=== PATIENT | male | born 1970 | race Caucasian/White ===

== ENCOUNTER 2018-04-13 19:37 | Inpatient (IN) | payer OTHER ==
[2018-04-13] VITALS (7 sets, daily range): BP systolic 139–159; BP diastolic 58–86
[~2018-04-13] VITALS: Ht 177.8 cm; Wt 108.9 kg
[2018-04-13] MEDS ORDERED: Propofol 200mg/20ml IV ONE (19:59)
[2018-04-13] MEDS ORDERED: Lidocaine 1% MPF 10mg/ml 5ml ONE (19:59)
[2018-04-13] MEDS ORDERED: Neostigmine 1mg/ml 10ml Inj ONE (20:00)
[2018-04-13] MEDS ORDERED: Glycopyrrolate 0.2mg/ml 1ml Vial ONE (20:00)
[2018-04-13] MEDS ORDERED: LR 1000ml ONE (20:00)
[2018-04-13] MEDS ORDERED: Sterile Water Irrig 1000ml IRRIG ONE (20:00)
[2018-04-13] MEDS ORDERED: NS Irrig 1000ml ONE (20:00)
[2018-04-13] MEDS ORDERED: Morphine Sulfate 4mg/ml Inj ONE (20:03)
[2018-04-13] MEDS ORDERED: Zemuron 50mg/5ml Inj IV ONE (20:10)
[2018-04-13] MEDS ORDERED: Midazolam 2mg/2ml Inj ONE ×2 (20:14→20:59)
[2018-04-13] MEDS ORDERED: fentaNYL 100 mcg/2 mL IV ONE ×3 (20:14→22:16)
[2018-04-13] MEDS ORDERED: Bacitracin 50000 Units Vial ONE (20:15)
[2018-04-13] MEDS ORDERED: Morphine Sulfate 4mg/ml Inj IVP ONE (20:15)
[2018-04-13] MEDS ORDERED: Vancomycin 1gm inj IVPB ONE (20:23)
--- NOTE | 2018-04-13 20:33 | Pre-Procedure Note/Attestation ---
Pre-Procedure Note/Attestation Complete Prior to Procedure Planned Procedure: not applicable Procedure Narrative: Lumbar wound irrigation and debridement Indications for Procedure Pre-Operative Diagnosis: Wound allergic reaction dermatitits versus infection Attestation I attest that I discussed the nature of the procedure; its benefits; risks and complications; and alternatives (and the risks and benefits of such alternatives ), prior to the procedure, with the patient (or the patient's legal franchise sales representative). I attest that, if there was a reasonable possibility of needing a blood transfusion, the patient (or the patient's legal franchise sales representative) was given the [facility] standardized written summary, pursuant to the [place] Blood Safety Act ([place] Health and Safety Code # 1645, as amended). I attest that I re-evaluated the patient just prior to the surgery and that there has been no change in the patient's H&P, except as documented below: Efren Leos MD Apr 13, 2018 20:33
--- NOTE | 2018-04-13 20:34 | Brief Operative Note ---
Immediate Post Operative Note Operative Note Chief Complaint: Wound drainage and pain Pre-op Diagnosis: Wound allergic reaction dermatitits versus infection Procedure: Lumbar wound irrigation and debridement Post-op Diagnosis: same as pre-op Findings: consistent w/pre-op dx studies Surgeon: Dafne Anesthesiologist: Anesthesia: general Specimen: yes - cultures aer and anaerobic Complications: none Condition: stable Fluids: IVF Estimated Blood Loss: minimal Drains: none Implant(s) used?: No Efren Leos MD Apr 13, 2018 20:34
[2018-04-13] MEDS ORDERED: Morphine Sulfate 2mg/ml Inj IV PRN (20:45)
[2018-04-13] MEDS ORDERED: Morphine Sulfate 4mg/ml Inj IV PRN (20:45)
[2018-04-13] MEDS ORDERED: Norco 5mg/325mg tab ORAL PRN (20:45)
[2018-04-13] MEDS ORDERED: Chloraseptic Spray 20mL Bottle ORAL PRN (20:45)
[2018-04-13] MEDS ORDERED: Metoclopramide 10mg/2ml Inj IVP PRN (20:45)
[2018-04-13] MEDS ORDERED: HYDROcodone/Acetamin 7.5/325 tab ORAL PRN (20:45)
[2018-04-13] MEDS ORDERED: Naloxone 0.4mg/ml Inj IVP PRN (20:45)
[2018-04-13] MEDS ORDERED: Dexamethasone 4mg/ml vial ONE (21:24)
--- NOTE | 2018-04-13 21:49 | Anethesia Preoperative Eval ---
Anesthesia Pre-op PMH/ROS General Date of Evaluation: Apr 13, 2018 Time of Evaluation: 20:30 Anesthesiologist: ASA Score: ASA 2 Mallampati Score Class I : Soft palate, uvula, fauces, pillars visible Class II: Soft palate, uvula, fauces visible Class III: Soft palate, base of uvula visible Class IV: Only hard plate visible Mallampati Classification: Class II Surgeon: valarie Diagnosis: post op lumbar infection Surgical Procedure: i and d lumbar wound Anesthesia History: none Family History: no anesthesia problems Allergies: Coded Allergies: AZITHROMYCIN (Verified Allergy, Unknown, 03/25/09) ERYTHROMYCIN BASE (Verified Allergy, Unknown, 04/13/18) Medications: see eMAR Past Medical History Cardiovascular: Reports: HTN; Denies: CAD, MD, valve dz, arrhythmia, other Pulmonary: Denies: asthma, COPD, KRISTIAN, other Gastrointestinal/Genitourinary: Denies: GERD, CRI, ESRD, other Neurologic/Psychiatric: Denies: dementia, CVA, depression/anxiety, TIA, other Endocrine: Denies: DM, hypothyroidism, steroids, other HEENT: Denies: cataract (L), cataract (R), glaucoma, [place] (L), [place] (R), other Hematology/Immune: Denies: anemia, DVT, bleeding disorder, other Musculoskeletal/Integumentary: Denies: OA, RA, DJD, DDD, edema, other PSxH Narrative: back surgeries Anesthesia Pre-op Phys. Exam Physician Exam Last Vital Signs Date Time Temp Pulse Resp B/P (MAP) Pulse Ox O2 Delivery O2 Flow Rate FiO2 04/13/18 20:15 98.5 04/13/18 19:38 80 16 159/86 92 Constitutional: NAD Cardiovascular: RRR Respiratory: CTA Gastrointestinal: S/NT/ND Airway Exam Mallampati Score: Class II MO: full ROM: full Teeth: intact Dentures: no upper, no lower Anesthesia Pre-op A/P Risk Assessment & Plan Assessment: asa 2 Plan: ETGA Pre-Antibiotics Drug: vancomycin 1 josiah Given Within 1 Hr of Incision: Yes Time Given: 22:00 Arline Shabazz M.D. Apr 13, 2018 21:49
--- NOTE | 2018-04-13 21:53 | Immediate Post-Op Evaluation ---
Immediate Post-Op Evalulation Immediate Post-Op Evalulation Procedure: lumbar wound i and d Date of Evaluation: Apr 13, 2018 Time of Evaluation: 22:44 IV Fluids: NS 950ml Blood Products: 0 Estimated Blood Loss: 20ml Urinary Output: 0 Blood Pressure Systolic: 140 Blood Pressure Diastolic: 58 Pulse Rate: 94 Respiratory Rate: 17 O2 Sat by Pulse Oximetry: 97 Temperature (Fahrenheit): 97.9 Pain Score (1-10): 5 Nausea: No Vomiting: No Complications none Patient Status: awake, patent, none Hydration Status: adequate Drug: vancomycin 1 gram Given Within 1 Hr of Incision: Yes Time Given: 22:00 Arline Shabazz M.D. Apr 13, 2018 21:53
[2018-04-13] MEDS ORDERED: fentaNYL 100 mcg/2 mL IV PRN (22:00)
[2018-04-13] MEDS ORDERED: DiphenhydrAMINE 50mg/ml Inj IVP PRN (22:00)
[2018-04-13] MEDS ORDERED: Hydromorphone 0.5mg/0.5ml inj IVP PRN (22:00)
[2018-04-13] MEDS ORDERED: Labetalol 5mg/ml 20ml vial IV PRN (22:00)
[2018-04-13] MEDS ORDERED: Midazolam 2mg/2ml Inj IVP PRN (22:00)
[2018-04-13] MEDS ORDERED: Ketorolac 30mg Inj ONE (22:15)
[2018-04-14] VITALS: BP 133/71
[2018-04-14] MEDS ORDERED: LISINOPRIL-HCT1 EAC1 ORAL (00:11)
[2018-04-14] MEDS: NS w/KCl 20mEq 1,000 ML IV SCH ×3 (00:38→12:09)
[2018-04-14] MEDS: Dexamethasone 4mg/ml vial IVP SCH ×4 (00:53→17:31)
[2018-04-14] MEDS: Morphine Sulfate 4mg/ml Inj IV PRN ×4 (00:53→10:44)
[2018-04-14] MEDS: Milk of Magnesia 30ml Ud ORAL PRN ×3 (03:56→17:31)
[2018-04-14 04:00] VITALS: BP 113/59
--- NOTE | 2018-04-14 04:30 | Operative Note - Dictated ---
DATE OF OPERATION: 04/13/2018 SURGEON: Efren Leos M.D. PREOPERATIVE DIAGNOSIS: Wound drainage versus allergic reaction. POSTOPERATIVE DIAGNOSIS: Allergic reaction. PROCEDURES PERFORMED: 1. Lumbar wound irrigation, debridements with vancomycin, and 8 liters of saline. 2. Dissection through altered and scarred anatomy. 3. Intraoperative microscope. COMPLICATIONS: None. ANESTHESIOLOGIST: Arline Shabazz M.D. ESTIMATED BLOOD LOSS: Less than 50 mL. INDICATIONS FOR SURGERY: The patient is a 47-year-old male, who has a history of a recent lumbar decompression and laminectomy, who presented with recent onset headaches, wound drainage, and a very aggressive superficial skin reaction following surgery. Despite antibiotics, his pain was progressing and he developed fevers to 101 degrees. He was seen at an outside hospital where there was a concern for possible wound infection and/or development of meningitis. He was transferred to [facility] for definitive management. The decision was made based on his symptoms, headache, pain with neck flexion, elevated temperatures, and wound drainage to perform an urgent lumbar wound irrigation and debridement. I had a long discussion with the patient regarding the risks and benefits of the surgery. Discussion of the risks and benefits included, but not limited to infection, bleeding, need for revision surgery, scarring, paralysis, development of epidural abscesses or hematoma. He understood these and elected to proceed accordingly. INTRAOPERATIVE FINDINGS: Erythema on the skin with some ruptured bullae and blisters. No superficial or subcutaneous drainage or pus. No deep or sublaminar drainage of pus. No cerebrospinal fluid disease noted. DESCRIPTION OF PROCEDURE: The patient was taken to the operating room and a surgical time-out was called, which corroborating the intended procedure. He was intubated and given preoperative Decadron. The wound was prepped and draped in usual standard manner with Betadine gel. Old incision was reused and incised with a 10-blade scalpel. All sutures were removed. There was no drainage pus or purulent fluid. There was no abnormal tissue and after dissection through the fascial suture, we found regular serosanguineous fluid. This was also cultured with two sets of aerobic and anaerobic cultures. Afterwards, the entire wound and soft tissues were debrided with a combination of Leksell rongeurs and curettage, and the wound was copiously irrigated with antibiotic-impregnated saline 8 liters with vancomycin powder. After irrigation, we next turned our attention at closure. I should note the wound was difficult to approach due to dissection through altered and scarred anatomy. Closure consisted of PDS suture in interrupted fashion and a superficial PDS 1 sutures, which were closed with red belem catheter to prevent skin breakdown followed by bhaskar for intervening level. Dressings consisted of an ABD binder and 4 x 4 gauze. Efren Leos M.D. DR: ELBA JOB#: [id number] CC: [place]
[2018-04-14 08:00] VITALS: BP 128/73
[2018-04-14] MEDS: Docusate 100mg cap ORAL SCH ×2 (09:04→17:31)
[2018-04-14] MEDS: HYDROcodone/Acetamin 7.5/325 tab ORAL PRN ×2 (09:05→21:24)
--- NOTE | 2018-04-14 09:30 | Pre-op HX & Phy Repo 2 SIG ---
DATE OF ADMISSION: 04/13/2018 NOTE: "POOR AUDIO QUALITY" HISTORY OF PRESENT ILLNESS: The patient is a 47-year-old male with history of recent lumbar decompression performed at [facility], who presents with history over the past four days of worsening headaches and with neck flexion and wound drainage. He was admitted yesterday to [place] [facility] where he was found to have elevated sedimentation rate and CRP, and was given antibiotics. He then was treated by a physician press assistant and a medical ER physician who were concerned for development of meningitis versus wound infection, which needed to be irrigated and debrided. As such, he was transferred to my care at [facility] here. PAST MEDICAL HISTORY: Intractable back pain, bilateral lower extremity radiculopathy, prior cervical pain, and underwent surgery. PAST SURGICAL HISTORY: Prior lumbar fusion by Dr. Kevon Clifton, last week underwent lumbar laminectomy and decompression. SOCIAL HISTORY: The patient is . His is in attendance today. 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 Denies alcohol and tobacco use. PHYSICAL EXAMINATION: SKIN: The patient has a wound midline on the lumbar spine, which appears healed. There is a large red area along his lumbar spine into distribution of his prior Steri-Strips and also a rectangular red area in distribution of the prior Tegaderm which he had in place there when previously blisters on the lumbar wound has left in tape which has erythema, excoriated, and roughened and thickened skin area. NEUROLOGIC: Motor of upper extremities is intact throughout the biceps, triceps, wrist extensors and flexors, finger extensors graded 5/5 in bilateral upper extremities. Motor is intact in bilateral lower extremities at [facility] tibialis anterior, gastrocsoleus, peroneal musculature rated 5/5. The the patient was able to move comfortably supine to seated to standing position. The patient was able to get on off board in a plank position followed by the . The patient to bilateral upper extremities throughout the C5, C6, C7, C8 distribution. The patient bilateral lower extremities throughout the L2, L3, L4, L5, and S1 distribution. IMPRESSION AND PLAN: This is a 47-year-old male with prior lumbar surgery, who now presents with a wound infection versus epidural abscess versus allergic reaction. PLAN: We had a long discussion with the patient and his family. The only definitive way to determine whether this is a wound infection versus allergic reaction versus an ongoing epidural abscess with resolving meningitis is to perform an urgent decompression, irrigation, debridement, and benites-cultures. He understands these and has elected to proceed with procedure as described. Efren Leos M.D. DR: Leia JOB#: [id number] CC:
[2018-04-14] MEDS ORDERED: Vancomycin 1 GM in D5W 275 ML IVPB SCH (10:00)
[2018-04-14] MEDS ORDERED: Morphine Sulfate 4mg/ml Inj IV PRN (10:45)
--- NOTE | 2018-04-14 10:49 | History and Physical ---
History of Present Illness General Date patient seen: Apr 14, 2018 Reason for Hospitalization: General Complaint Present Illness HPI 47 year old male with recent spine surgery last week at [facility], started increasing redness around surgical wound gradually. He was taken to OR last night for irrigation of the wound. Post-operatively pt is admitted for post op care. Allergies: Coded Allergies: AZITHROMYCIN (Verified Allergy, Unknown, 03/25/09) ERYTHROMYCIN BASE (Verified Allergy, Unknown, 04/13/18) Medication History Scheduled Lisinopril/Hydrochlorothiazide 20-12.5 Mg Tab (Lisinopril-Hctz 20-12.5 Mg Tab), 2 TAB ORAL DAILY, (Reported) Patient History Healthcare decision maker Resuscitation status Full Code Advanced Directive on File Past Medical/Surgical History Past Medical/Surgical History: (1) History of lumbosacral spine surgery Review of Systems All Other Systems: negative except mentioned in HPI Physical Exam General Appearance: WD/WN Lines, tubes and drains: peripheral HEENT: normocephalic, anicteric Neck: non-tender, normal alignment Respiratory/Chest: chest wall non-tender, lungs clear Breasts: no masses Cardiovascular/Chest: normal peripheral pulses Abdomen: normal bowel sounds, soft Genitourinary/Rectal: normal genital exam Last 24 Hour Vital Signs Date Time Temp Pulse Resp B/P (MAP) Pulse Ox O2 Delivery O2 Flow Rate FiO2 04/14/18 08:49 Room Air 04/14/18 08:00 97.9 81 18 128/73 (91) 97 97.9 04/14/18 04:00 97.3 60 18 113/59 (77) 94 97.3 04/14/18 01:33 Nasal Cannula 3.0 04/14/18 00:00 97.5 74 19 133/71 (91) 96 97.5 04/13/18 23:25 71 17 143/82 95 Nasal Cannula 3 04/13/18 23:15 76 17 143/82 96 Nasal Cannula 3 04/13/18 23:04 208.2 94 17 97 04/13/18 23:00 80 17 139/84 97 Nasal Cannula 3 04/13/18 22:54 74 17 145/80 97 Simple Mask 8 04/13/18 22:49 89 17 142/73 97 Simple Mask 8 04/13/18 22:44 97.9 94 17 140/58 97 Simple Mask 8 97.9 04/13/18 20:40 98.5 80 16 159/86 92 209.3 04/13/18 20:15 98.5 04/13/18 20:00 98.4 80 16 159/86 92 98.4 04/13/18 19:38 98.5 80 16 159/86 92 98.4 Intake and Output 04/13/18 04/14/18 19:00 07:00 Intake Total 1100 ml Balance 1100 ml Intake Oral 0 ml IV Total 1100 ml Height (Feet): 5 Height (Inches): 10.00 Weight (Pounds): 240 Medications Current Medications Medications (Trade) Dose Ordered Sig/Pritesh Route PRN Reason Start Time Stop Time Status Last Admin Dose Admin Acetaminophen (Tylenol) 650 mg Q4H PRN ORAL headache or temp>101 04/13/18 20:45 05/13/18 20:44 Acetaminophen/ Hydrocodone Bitart ([place] 5/325) 1 tab Q3H PRN ORAL pain score 1-3 04/13/18 20:45 04/20/18 20:44 Acetaminophen/ Hydrocodone Bitart ([place] 7.5/325) 1 tab Q3H PRN ORAL pain score 4-6 04/13/18 20:45 04/20/18 20:44 Acetaminophen/ Hydrocodone Bitart ([place] 7.5/325) 2 tab Q3H PRN ORAL pain scale 7-10 04/13/18 20:45 04/20/18 20:44 04/14/18 09:05 Carisoprodol (Soma) 350 mg TIDPRN PRN ORAL SPASM 04/13/18 20:45 05/13/18 20:44 Cetylpyridinium Chloride (Cepacol) 1 lozg EVERY 2 HOURS PRN DAX To Patient Comfort 04/13/18 20:45 05/13/18 20:44 Dexamethasone Sodium Phosphate (Decadron 4mg/ml vial) 4 mg Q6HR IVP 04/14/18 00:00 04/14/18 18:01 04/14/18 05:23 Docusate Sodium (Colace) 100 mg TWICE A DAY ORAL 04/14/18 09:00 05/14/18 08:59 04/14/18 09:04 Magnesium Hydroxide (Mom) 30 ml QIDPRN PRN ORAL Constipation 04/13/18 20:45 8/10/18 20:44 04/14/18 09:04 Metoclopramide HCl (Reglan) 10 mg Q6H PRN IVP Nausea & Vomiting 04/13/18 20:45 05/13/18 20:44 Morphine Sulfate (Morphine Sulfate) 2 mg Q4H PRN IV Mild Pain (Pain Scale 1-3) 04/13/18 20:45 04/20/18 20:44 Morphine Sulfate (Morphine Sulfate) 4 mg Q3H PRN IV Severe Pain (Pain Scale 7-10) 04/13/18 20:45 04/20/18 20:44 04/14/18 07:40 Morphine Sulfate (Morphine Sulfate) 4 mg Q4H PRN IV Moderate Pain (Pain Scale 4-6) 04/13/18 20:45 04/20/18 20:44 Naloxone HCl (Narcan) 0.1 mg PRN PRN IVP RR<12/min, pt unarousable 04/13/18 20:45 05/13/18 20:44 Ondansetron HCl (Zofran) 4 mg Q6H PRN IVP Nausea & Vomiting 04/13/18 20:45 05/13/18 20:44 Phenol/Menthol (Chloraseptic) 1 spray Q3H PRN ORAL To Patient Comfort 04/13/18 20:45 05/13/18 20:44 Sodium Chloride 1,000 ml @ 100 mls/hr Q10H IV 04/13/18 20:34 05/13/18 20:33 04/14/18 05:24 Temazepam (Restoril) 15 mg HSPRN PRN ORAL Insomnia 04/13/18 20:45 04/20/18 20:44 Vancomycin HCl 1 gm/Dextrose 275 ml @ 183.3 mls/ hr Q12H IVPB 04/14/18 10:00 04/14/18 23:31 Assessment/Plan Problem List: (1) Wound infection ICD Codes: T14.8XXA - Other injury of unspecified body region, initial encounter; L08.9 - Local infection of the skin and subcutaneous tissue, unspecified SNOMED: 71597933 (2) Allergic reaction ICD Codes: T78.40XA - Allergy, unspecified, initial encounter SNOMED: 292869016 (3) History of lumbosacral spine surgery ICD Codes: Z98.890 - Other specified postprocedural states SNOMED: 136334415 Assessment/Plan wound care iv abx check cultures check cbc, bmp today dvt prophylaxis adjust pain meds. Stephany Sadler MD Apr 14, 2018 10:48
[2018-04-14] MEDS ORDERED: Morphine Sulfate 10mg/ml Inj IV PRN (11:45)
[2018-04-14 11:58] LABS: HEMATOCRIT 32.9 % (42.0-52.0); HEMOGLOBIN 11.6 G/DL (14.2-18.0); MEAN CORPUSCULAR VOLUME 90 FL (80-99); PLATELET COUNT 268 K/UL (150-450); RED BLOOD COUNT 3.67 M/UL (4.70-6.10); RED CELL DISTRIBUTION WIDTH 9.9 % (11.6-14.8)
[2018-04-14 12:00] VITALS: BP 125/70
[2018-04-14 12:18] LABS: ALANINE AMINOTRANSFERASE 29 U/L (12-78); ALBUMIN 2.8 G/DL (3.4-5.0); ALBUMIN/GLOBULIN RATIO 0.8 (1.0-2.7); ALKALINE PHOSPHATASE 52 U/L (46-116); ANION GAP 5 mmol/L (5-15); ASPARTATE AMINO TRANSFERASE 19 U/L (15-37); BILIRUBIN,TOTAL 0.4 MG/DL (0.2-1.0); BLOOD UREA NITROGEN 25 mg/dL (7-18); CALCIUM 8.4 MG/DL (8.5-10.1); CARBON DIOXIDE 29 MMOL/L (21-32); CHLORIDE 103 MMOL/L (98-107); POTASSIUM 4.3 MMOL/L (3.5-5.1); SODIUM 137 MMOL/L (136-145)
--- NOTE | 2018-04-14 13:35 | 48 Hour Post Anesthesia Eval ---
Post Anesthesia Evaluation Procedure: lumbar wound i and d Date of Evaluation: Apr 14, 2018 Time of Evaluation: 13:33 Blood Pressure Systolic: 124 0: 72 Pulse Rate: 68 Respiratory Rate: 20 Temperature (Fahrenheit): 97.6 O2 Sat by Pulse Oximetry: 98 Airway: patent Nausea: No Vomiting: No Pain Intensity: 2 Hydration Status: adequate Cardiopulmonary Status: stable Follow-up Care/Observations: n/a Post-Anesthesia Complications: none Follow-up care needed: N/A Mihir Goetz MD Apr 14, 2018 13:35
--- NOTE | 2018-04-14 13:54 | Emergency Room Report ---
History of Present Illness General Chief Complaint: General Complaint Source: Patient Present Illness HPI 47-year-old male presents ED for evaluation. Patient referred here by Dr. Leos; patient was at another emergency room today with drainage and redness to his lower back. Has had multiple surgeries on his back previously. Most recent surgery on his back on Wednesday at [facility]. Was discharged on Wednesday. Patient noticed redness and pain to the lower back on Wednesday. Also noted discharge. Pain is sharp, 8 out of 10, nonradiating. Denies fevers or chills. Was prescribed antibiotics by the surgeon but states symptoms did not resolve. Denies any bowel or bladder incontinence. Denies any leg or motor weakness. No other aggravating or relieving factors. Denies any other associated symptoms Allergies: Coded Allergies: AZITHROMYCIN (Verified Allergy, Unknown, 03/25/09) ERYTHROMYCIN BASE (Verified Allergy, Unknown, 04/13/18) Patient History Past Medical History: HTN Past Surgical History: none Pertinent Family History: none Social History: Denies: smoking, alcohol use, drug use Immunizations: UTD Reviewed Nursing Documentation: PMH: Agreed; PSxH: Agreed Nursing Documentation-PMH Past Medical History: No History, Except For Hx Hypertension: Yes Review of Systems All Other Systems: negative except mentioned in HPI Physical Exam Vital Signs Date Time Temp Pulse Resp B/P (MAP) Pulse Ox O2 Delivery O2 Flow Rate FiO2 04/13/18 19:38 98.5 80 16 159/86 92 98.4 04/13/18 22:44 Simple Mask 8 Sp02 EP Interpretation: reviewed, normal General Appearance: no apparent distress, alert, GCS 15, non-toxic Head: normocephalic, atraumatic Eyes: bilateral eye normal inspection, bilateral eye PERRL ENT: hearing grossly normal, normal pharynx, no angioedema, normal voice Neck: full range of motion, supple/symm/no masses Respiratory: chest non-tender, lungs clear, normal breath sounds, speaking full sentences Cardiovascular #1: regular rate, rhythm, no edema Cardiovascular #2: 2+ carotid (R), 2+ carotid (L), 2+ radial (R), 2+ radial (L) , 2+ dorsalis pedis (R), 2+ dorsalis pedis (L) Gastrointestinal: normal bowel sounds, non tender, soft, non-distended, no guarding, no rebound Rectal: deferred Genitourinary: normal inspection, vertebral tenderness Musculoskeletal: back normal, gait/station normal, normal range of motion, non- tender Neurologic: alert, oriented x3, responsive, motor strength/tone normal, sensory intact, speech normal Psychiatric: judgement/insight normal, memory normal, mood/affect normal, no suicidal/homicidal ideation Reflexes: 3+ bicep (R), 3+ bicep (L), 3+ tricep (R), 3+ tricep (L), 3+ knee (R) , 3+ knee (L) Skin: normal color, no rash, warm/dry, well hydrated, other - surgical site to L spine shows surrounding erythema/induration. discharge noted at surgical site Lymphatic: no adenopathy Medical Decision Making Diagnostic Impression: Primary Impression: Wound infection Additional Impression: History of lumbosacral spine surgery ER Course Hospital Course 47 yo M presents with redness/pain to lower back. s/p back surgery Differential diagnoses include: surgical site infection, deep abscess, postoperative pain Clinical course Patient placed on stretcher. After initial history, his exam reveals male in mild distress. On exam there is erythema and induration surrounding the surgical site on the L-spine. There is also some discharge noted from the surgical site. No focal neurological deficits. No sensory or motor deficits. Patient is afebrile. Dr. Leos bedside. Agrees that patient should be taken to the OR Patient had already been given antibiotics at another hospital earlier today. Labs were drawn no reason for further lab draw at this time. IV access established and morphine given for pain Diagnosis - wound infection, history of lumbosacral spine surgery Patient taken to OR in serious condition . will be subsequently admitted to floor Last Vital Signs Date Time Temp Pulse Resp B/P (MAP) Pulse Ox O2 Delivery O2 Flow Rate FiO2 04/14/18 13:35 207.7 68 20 98 04/14/18 12:00 125/70 (88) 04/14/18 08:49 Room Air 04/14/18 01:33 3.0 Status: improved Disposition: ADMITTED INPATIENT Condition: Serious Referrals: Efren Leos MD (PCP) Patrice Mehta MD Apr 14, 2018 13:54
--- NOTE | 2018-04-14 14:44 | Infectious Diseases Prog Note ---
Assessment/Plan Assessment/Plan Ful consult dictated: A) 1) possible lumbar back wound infection vs allergic reaction - s/p debridement 2) s/p recent lumbar spine decompression and laminectomy 3) allergies - azithromycin, erythromycin 4) orders noted P 1) vancomycin and ceftriaxone 2) check surgical cultures from debridement 3) f/u labs 4) d/w Dr. Leos 5) thanks Subjective Allergies: Coded Allergies: AZITHROMYCIN (Verified Allergy, Unknown, 03/25/09) ERYTHROMYCIN BASE (Verified Allergy, Unknown, 04/13/18) Objective Vital Signs Last 24 Hour Vital Signs Date Time Temp Pulse Resp B/P (MAP) Pulse Ox O2 Delivery O2 Flow Rate FiO2 04/14/18 13:35 207.7 68 20 98 04/14/18 12:00 97.7 79 18 125/70 (88) 97 97.7 04/14/18 08:49 Room Air 04/14/18 08:00 97.9 81 18 128/73 (91) 97 97.9 04/14/18 04:00 97.3 60 18 113/59 (77) 94 97.3 04/14/18 01:33 Nasal Cannula 3.0 04/14/18 00:00 97.5 74 19 133/71 (91) 96 97.5 04/13/18 23:25 71 17 143/82 95 Nasal Cannula 3 04/13/18 23:15 76 17 143/82 96 Nasal Cannula 3 04/13/18 23:04 208.2 94 17 97 04/13/18 23:00 80 17 139/84 97 Nasal Cannula 3 04/13/18 22:54 74 17 145/80 97 Simple Mask 8 04/13/18 22:49 89 17 142/73 97 Simple Mask 8 04/13/18 22:44 97.9 94 17 140/58 97 Simple Mask 8 97.9 04/13/18 20:40 98.5 80 16 159/86 92 209.3 04/13/18 20:15 98.5 04/13/18 20:00 98.4 80 16 159/86 92 98.4 04/13/18 19:38 98.5 80 16 159/86 92 98.4 Height (Feet): 5 Height (Inches): 10.00 Weight (Pounds): 240 Laboratory Tests Test 04/14/18 11:45 White Blood Count 6.0 K/UL (4.8-10.8) Red Blood Count 3.67 M/UL (4.70-6.10) L Hemoglobin 11.6 G/DL (14.2-18.0) L Hematocrit 32.9 % (42.0-52.0) L Mean Corpuscular Volume 90 FL (80-99) Mean Corpuscular Hemoglobin 31.7 PG (27.0-31.0) H Mean Corpuscular Hemoglobin Concent 35.3 G/DL (32.0-36.0) Red Cell Distribution Width 9.9 % (11.6-14.8) L Platelet Count 268 K/UL (150-450) Mean Platelet Volume 6.0 FL (6.5-10.1) L Neutrophils (%) (Auto) % (45.0-75.0) Lymphocytes (%) (Auto) % (20.0-45.0) Monocytes (%) (Auto) % (1.0-10.0) Eosinophils (%) (Auto) % (0.0-3.0) Basophils (%) (Auto) % (0.0-2.0) Differential Total Cells Counted 100 Neutrophils % (Manual) 83 % (45-75) H Lymphocytes % (Manual) 10 % (20-45) L Monocytes % (Manual) 6 % (1-10) Eosinophils % (Manual) 0 % (0-3) Basophils % (Manual) 0 % (0-2) Band Neutrophils 1 % (0-8) Platelet Estimate Adequate Platelet Morphology Normal Red Blood Cell Morphology Normal Sodium Level 137 MMOL/L (136-145) Potassium Level 4.3 MMOL/L (3.5-5.1) Chloride Level 103 MMOL/L (98-107) Carbon Dioxide Level 29 MMOL/L (21-32) Anion Gap 5 mmol/L (5-15) Blood Urea Nitrogen 25 mg/dL (7-18) H Creatinine 1.0 MG/DL (0.55-1.30) Estimat Glomerular Filtration Rate > 60 mL/min (>60) Glucose Level 197 MG/DL (74-106) H Calcium Level 8.4 MG/DL (8.5-10.1) L Total Bilirubin 0.4 MG/DL (0.2-1.0) Aspartate Amino Transf (AST/SGOT) 19 U/L (15-37) Alanine Aminotransferase (ALT/SGPT) 29 U/L (12-78) Alkaline Phosphatase 52 U/L (46-116) Total Protein 6.1 G/DL (6.4-8.2) L Albumin 2.8 G/DL (3.4-5.0) L Globulin 3.3 g/dL Albumin/Globulin Ratio 0.8 (1.0-2.7) L Current Medications Medications (Trade) Dose Ordered Sig/Pritesh Route PRN Reason Start Time Stop Time Status Last Admin Dose Admin Acetaminophen (Tylenol) 650 mg Q4H PRN ORAL headache or temp>101 04/13/18 20:45 05/13/18 20:44 Acetaminophen/ Hydrocodone Bitart ([place] 5/325) 1 tab Q3H PRN ORAL pain score 1-3 04/13/18 20:45 04/20/18 20:44 Acetaminophen/ Hydrocodone Bitart ([place] 7.5/325) 1 tab Q3H PRN ORAL pain score 4-6 04/13/18 20:45 04/20/18 20:44 Acetaminophen/ Hydrocodone Bitart ([place] 7.5/325) 2 tab Q3H PRN ORAL pain scale 7-10 04/13/18 20:45 04/20/18 20:44 04/14/18 09:05 Carisoprodol (Soma) 350 mg TIDPRN PRN ORAL SPASM 04/13/18 20:45 05/13/18 20:44 Cetylpyridinium Chloride (Cepacol) 1 lozg EVERY 2 HOURS PRN DAX To Patient Comfort 04/13/18 20:45 05/13/18 20:44 Dexamethasone Sodium Phosphate (Decadron 4mg/ml vial) 4 mg Q6HR IVP 04/14/18 00:00 04/14/18 18:01 04/14/18 05:23 Docusate Sodium (Colace) 100 mg TWICE A DAY ORAL 04/14/18 09:00 05/14/18 08:59 04/14/18 09:04 Magnesium Hydroxide (Mom) 30 ml QIDPRN PRN ORAL Constipation 04/13/18 20:45 05/13/18 20:44 04/14/18 09:04 Metoclopramide HCl (Reglan) 10 mg Q6H PRN IVP Nausea & Vomiting 04/13/18 20:45 05/13/18 20:44 Morphine Sulfate (Morphine Sulfate) 4 mg Q2H PRN IV Moderate Pain (Pain Scale 4-6) 04/14/18 10:45 04/21/18 10:44 Morphine Sulfate (Morphine Sulfate) 6 mg Q3H PRN IV Severe Pain (Pain Scale 7-10) 04/14/18 11:45 04/20/18 20:44 04/14/18 13:52 Naloxone HCl (Narcan) 0.1 mg PRN PRN IVP RR<12/min, pt unarousable 04/13/18 20:45 05/13/18 20:44 Ondansetron HCl (Zofran) 4 mg Q6H PRN IVP Nausea & Vomiting 04/13/18 20:45 05/13/18 20:44 Phenol/Menthol (Chloraseptic) 1 spray Q3H PRN ORAL To Patient Comfort 04/13/18 20:45 05/13/18 20:44 Sodium Chloride 1,000 ml @ 100 mls/hr Q10H IV 04/13/18 20:34 05/13/18 20:33 04/14/18 12:09 Temazepam (Restoril) 15 mg HSPRN PRN ORAL Insomnia 04/13/18 20:45 04/20/18 20:44 Vancomycin HCl 1 gm/Dextrose 275 ml @ 183.3 mls/ hr Q12H IVPB 04/14/18 10:00 04/14/18 23:31 04/14/18 10:43 Nathaniel Hall MD Apr 14, 2018 14:44
--- NOTE | 2018-04-14 15:55 | History and Physical ---
History of Present Illness General Date patient seen: Apr 14, 2018 Time patient seen: 15:55 Reason for Hospitalization: General Complaint Present Illness HPI This is a 47 y/o male with a PMH of back injury s/p recent lumbar decompression who presented with 4 days of worsening headaches and wound drainage to back. Patient presented to [place] [facility] and was noted to have an elevated ESR and CRP, and was given abx. Patient was further transferred to [facility] further I&D. Patient underwent an I&D yesterday with no periop or postop complications. Patient states headaches have improved. Denies fevers/chills, sob, cp, n/v, abdominal pain. Postop pain well controlled. Allergies: Coded Allergies: AZITHROMYCIN (Verified Allergy, Unknown, 03/25/09) ERYTHROMYCIN BASE (Verified Allergy, Unknown, 04/13/18) Medication History Scheduled Lisinopril/Hydrochlorothiazide 20-12.5 Mg Tab (Lisinopril-Hctz 20-12.5 Mg Tab), 2 TAB ORAL DAILY, (Reported) Patient History History Provided By: Patient Healthcare decision maker Resuscitation status Full Code Advanced Directive on File Review of Systems All Other Systems: negative except mentioned in HPI Physical Exam General Appearance: no apparent distress, alert HEENT: normocephalic, atraumatic Neck: non-tender, normal alignment, supple Respiratory/Chest: chest wall non-tender, lungs clear, normal breath sounds Cardiovascular/Chest: normal peripheral pulses, normal rate, regular rhythm Abdomen: normal bowel sounds, non tender, soft Extremities: normal range of motion, non-tender Skin Exam: normal pigmentation, warm/dry, other - with back celestina drains 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 grossly normal, alert, oriented x 3 Last 24 Hour Vital Signs Date Time Temp Pulse Resp B/P (MAP) Pulse Ox O2 Delivery O2 Flow Rate FiO2 04/14/18 13:35 207.7 68 20 98 04/14/18 12:00 97.7 79 18 125/70 (88) 97 97.7 04/14/18 08:49 Room Air 04/14/18 08:00 97.9 81 18 128/73 (91) 97 97.9 04/14/18 04:00 97.3 60 18 113/59 (77) 94 97.3 04/14/18 01:33 Nasal Cannula 3.0 04/14/18 00:00 97.5 74 19 133/71 (91) 96 97.5 04/13/18 23:25 71 17 143/82 95 Nasal Cannula 3 04/13/18 23:15 76 17 143/82 96 Nasal Cannula 3 04/13/18 23:04 208.2 94 17 97 04/13/18 23:00 80 17 139/84 97 Nasal Cannula 3 04/13/18 22:54 74 17 145/80 97 Simple Mask 8 04/13/18 22:49 89 17 142/73 97 Simple Mask 8 04/13/18 22:44 97.9 94 17 140/58 97 Simple Mask 8 97.9 04/13/18 20:40 98.5 80 16 159/86 92 209.3 04/13/18 20:15 98.5 04/13/18 20:00 98.4 80 16 159/86 92 98.4 04/13/18 19:38 98.5 80 16 159/86 92 98.4 Intake and Output 04/13/18 04/14/18 19:00 07:00 Intake Total 1100 ml Balance 1100 ml Intake Oral 0 ml IV Total 1100 ml Laboratory Tests Test 04/14/18 11:45 White Blood Count 6.0 K/UL (4.8-10.8) Red Blood Count 3.67 M/UL (4.70-6.10) L Hemoglobin 11.6 G/DL (14.2-18.0) L Hematocrit 32.9 % (42.0-52.0) L Mean Corpuscular Volume 90 FL (80-99) Mean Corpuscular Hemoglobin 31.7 PG (27.0-31.0) H Mean Corpuscular Hemoglobin Concent 35.3 G/DL (32.0-36.0) Red Cell Distribution Width 9.9 % (11.6-14.8) L Platelet Count 268 K/UL (150-450) Mean Platelet Volume 6.0 FL (6.5-10.1) L Neutrophils (%) (Auto) % (45.0-75.0) Lymphocytes (%) (Auto) % (20.0-45.0) Monocytes (%) (Auto) % (1.0-10.0) Eosinophils (%) (Auto) % (0.0-3.0) Basophils (%) (Auto) % (0.0-2.0) Differential Total Cells Counted 100 Neutrophils % (Manual) 83 % (45-75) H Lymphocytes % (Manual) 10 % (20-45) L Monocytes % (Manual) 6 % (1-10) Eosinophils % (Manual) 0 % (0-3) Basophils % (Manual) 0 % (0-2) Band Neutrophils 1 % (0-8) Platelet Estimate Adequate Platelet Morphology Normal Red Blood Cell Morphology Normal Sodium Level 137 MMOL/L (136-145) Potassium Level 4.3 MMOL/L (3.5-5.1) Chloride Level 103 MMOL/L (98-107) Carbon Dioxide Level 29 MMOL/L (21-32) Anion Gap 5 mmol/L (5-15) Blood Urea Nitrogen 25 mg/dL (7-18) H Creatinine 1.0 MG/DL (0.55-1.30) Estimat Glomerular Filtration Rate > 60 mL/min (>60) Glucose Level 197 MG/DL (74-106) H Calcium Level 8.4 MG/DL (8.5-10.1) L Total Bilirubin 0.4 MG/DL (0.2-1.0) Aspartate Amino Transf (AST/SGOT) 19 U/L (15-37) Alanine Aminotransferase (ALT/SGPT) 29 U/L (12-78) Alkaline Phosphatase 52 U/L (46-116) Total Protein 6.1 G/DL (6.4-8.2) L Albumin 2.8 G/DL (3.4-5.0) L Globulin 3.3 g/dL Albumin/Globulin Ratio 0.8 (1.0-2.7) L Height (Feet): 5 Height (Inches): 10.00 Weight (Pounds): 240 Medications Current Medications Medications (Trade) Dose Ordered Sig/Pritesh Route PRN Reason Start Time Stop Time Status Last Admin Dose Admin Acetaminophen (Tylenol) 650 mg Q4H PRN ORAL headache or temp>101 04/13/18 20:45 05/13/18 20:44 Acetaminophen/ Hydrocodone Bitart ([place] 5/325) 1 tab Q3H PRN ORAL pain score 1-3 04/13/18 20:45 04/20/18 20:44 Acetaminophen/ Hydrocodone Bitart ([place] 7.5/325) 1 tab Q3H PRN ORAL pain score 4-6 04/13/18 20:45 04/20/18 20:44 Acetaminophen/ Hydrocodone Bitart ([place] 7.5/325) 2 tab Q3H PRN ORAL pain scale 7-10 04/13/18 20:45 04/20/18 20:44 04/14/18 09:05 Carisoprodol (Soma) 350 mg TIDPRN PRN ORAL SPASM 04/13/18 20:45 05/13/18 20:44 Ceftriaxone Sodium 2 gm/ Dextrose 100 ml @ 200 mls/hr DAILY IVPB 04/14/18 16:00 04/21/18 15:59 Cetylpyridinium Chloride (Cepacol) 1 lozg EVERY 2 HOURS PRN DAX To Patient Comfort 04/13/18 20:45 05/13/18 20:44 Dexamethasone Sodium Phosphate (Decadron 4mg/ml vial) 4 mg Q6HR IVP 04/14/18 00:00 04/14/18 18:01 04/14/18 05:23 Docusate Sodium (Colace) 100 mg TWICE A DAY ORAL 04/14/18 09:00 05/14/18 08:59 04/14/18 09:04 Magnesium Hydroxide (Mom) 30 ml QIDPRN PRN ORAL Constipation 04/13/18 20:45 05/13/18 20:44 04/14/18 09:04 Metoclopramide HCl (Reglan) 10 mg Q6H PRN IVP Nausea & Vomiting 04/13/18 20:45 05/13/18 20:44 Morphine Sulfate (Morphine Sulfate) 4 mg Q2H PRN IV Moderate Pain (Pain Scale 4-6) 04/14/18 10:45 04/21/18 10:44 Morphine Sulfate (Morphine Sulfate) 6 mg Q3H PRN IV Severe Pain (Pain Scale 7-10) 04/14/18 11:45 04/20/18 20:44 04/14/18 13:52 Naloxone HCl (Narcan) 0.1 mg PRN PRN IVP RR<12/min, pt unarousable 04/13/18 20:45 05/13/18 20:44 Ondansetron HCl (Zofran) 4 mg Q6H PRN IVP Nausea & Vomiting 04/13/18 20:45 05/13/18 20:44 Phenol/Menthol (Chloraseptic) 1 spray Q3H PRN ORAL To Patient Comfort 04/13/18 20:45 05/13/18 20:44 Sodium Chloride 1,000 ml @ 100 mls/hr Q10H IV 04/13/18 20:34 05/13/18 20:33 04/14/18 12:09 Temazepam (Restoril) 15 mg HSPRN PRN ORAL Insomnia 04/13/18 20:45 04/20/18 20:44 Vancomycin HCl (Vanco rx to dose) 1 ea DAILY PRN MISC Per rx protocol 04/14/18 15:00 05/14/18 14:59 Vancomycin HCl 1 gm/Dextrose 275 ml @ 183.3 mls/ hr Q8H IVPB 04/14/18 20:00 04/19/18 19:59 Assessment/Plan Problem List: (1) Wound infection ICD Codes: T14.8XXA - Other injury of unspecified body region, initial encounter; L08.9 - Local infection of the skin and subcutaneous tissue, unspecified SNOMED: [id number] (2) History of lumbosacral spine surgery ICD Codes: Z98.890 - Other specified postprocedural states SNOMED: 974234103 Status: stable, progressing Assessment/Plan - Admit to inpatient - ID following, apprec rec's - Surgery following, apprec rec's s/p I&D to lumbosacral region on 04/13 f/u wound cultures continue IV ceftriaxone and vancomycin per ID (D1) Post operative rec's include: - encourage mobilization/ambulation - encourage incentive spirometry to optimize pulmonary hygiene - DVT/GI ppx as appropriate - ctm CBC and hemodynamics - ctm electrolytes, adjust/replete prn - PT/OT/ST, if indicated - pain control, supportive care, bowel regimen - DC planning Thank you, Dr. Leos, for this consultation. Carmelina Blakely NP Apr 14, 2018 15:55
[2018-04-14 16:00] VITALS: BP 129/76
[2018-04-14] MEDS: Vancomycin 1 GM in D5W 275 ML IVPB SCH (19:35)
[2018-04-14 20:00] VITALS: BP 133/68
--- NOTE | 2018-04-14 22:32 | Consultation ---
DATE OF CONSULTATION: 04/14/2018 INFECTIOUS DISEASES CONSULTATION CONSULTING PHYSICIAN: Nathaniel Hall M.D. ATTENDING PHYSICIAN: Efren Leos M.D. REASON FOR CONSULTATION: Possible lumbar back infected wound. CHIEF COMPLAINT: The patient's chief complaint coming into the hospital is possible infected wound of the lumbar back. HISTORY OF PRESENT ILLNESS: This is a very pleasant 47-year-old male, who comes in from an outside facility. The patient has a history of recent lumbar spine decompression laminectomy, this was done at [facility], and then over the past 4 days, noticed worsening headaches with neck flexion and wound drainage. The patient was admitted yesterday to [facility] where he was found to have elevated sedimentation rate and CRP, and was given antibiotics. There was concern for meningitis at this time and also possible infected wound of the lumbar back. The patient was then transferred to [facility] for more definitive therapy and surgery. The patient also was noted to have fevers as high as 101 degrees. It looks like also per the records he has had antibiotics prior. I believe he was getting antibiotics at the outside facility including vancomycin and Rocephin when I discussed with the patient's . The patient is status post debridement and irrigation of the lumbar wound. Cultures are pending at this time. The patient currently is on vancomycin and Rocephin. Case was discussed with Dr. Leos. PAST MEDICAL HISTORY: The patient has a history of recent lumbar spine decompression and laminectomy. It sounds like the patient had radiculopathy, has a history of back surgery in the past and a history of back pain in the past. He also has a history of lumbar fusion in the past. No diabetes or hypertension mentioned. MEDICATIONS: Upon reviewing the MAR, he is on the following medications. He is on Rocephin, vancomycin, morphine, docusate. He was, I believe, given Decadron. He is on Narcan as needed, hydrocodone, Zofran, temazepam, metoclopramide, acetaminophen, magnesium hydroxide, Soma and Cepacol. ALLERGIES: Azithromycin and erythromycin. SOCIAL HISTORY: Negative for smoking, alcohol or drug abuse. 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 FAMILY HISTORY: Noncontributory. REVIEW OF SYSTEMS: CONSTITUTIONAL: The patient has no focal weakness. He did have fevers prior to admission. He had back pain. HEAD AND NECK: No head pain or neck pain. No change in vision. CARDIAC: No chest pain. No neck stiffness. GASTROINTESTINAL: No nausea, vomiting, or diarrhea. GENITOURINARY: No Gutiérrez. PULMONARY: No dysuria or frequency. PULMONARY: No congestion, shortness of breath, hemoptysis or secretions. SKIN: No rash. MUSCULOSKELETAL: No extremity pain mentioned. NEUROLOGIC: No seizures mentioned. PHYSICAL EXAMINATION: VITAL SIGNS: Temperature is 97.7 degrees, pulse rate is 79, respiratory rate 18, blood pressure 125/70, and saturation 97%. Per the records, he had a temperature of 101 degrees prior to admission. GENERAL: Alert and responsive, in no acute distress. HEAD AND NECK: Oral exam, no thrush. Eye exam, no icterus. Normocephalic. No facial droop. No neck stiffness. Neck is supple. HEART: Regular. No gallop or murmur. ABDOMEN: Soft. Positive bowel sounds. Nontender. LUNGS: Clear bilaterally. No rhonchi or rales. SKIN: No rash. MUSCULOSKELETAL: No effusion. Legs are without cellulitis. PERIPHERAL VASCULAR: No evidence of cyanosis or gangrene. GENITOURINARY: No Gutiérrez. NEUROLOGIC: Intact. Line sites without phlebitis. LABORATORY AND DIAGNOSTIC DATA: Creatinine 1.0. White count 6.0 and hemoglobin 11.6. Cultures from the debridement and irrigation are pending. Operative note was reviewed and showed serosanguineous fluid. There is no pus or purulent fluid. Again, cultures were obtained. ASSESSMENT AND PLAN: 1. The patient has possible lumbar back wound infection versus allergic reaction. The patient is status post irrigation and debridement of the wound. Cultures were obtained. We will continue vancomycin and Rocephin for methicillin-resistant Staphylococcus aureus and Gram-negative coverage pending culture results from the irrigation and debridement surgery that was done last night. Of note, according to the operative note and in communication with Dr. Leos, there is no pus seen, there was serosanguineous fluid. Continue vancomycin and Rocephin and check final culture results. 2. Recent lumbar spine decompression laminectomy. 3. History of back pain and history of fusion surgery. 4. No history of diabetes or hypertension. 5. Pain management per [facility]. 6. History of radiculopathy. 7. Social history negative for smoking, alcohol, or drug abuse. 8. Family history noncontributory. 9. MAR was noted. 10. Case discussed with RN. 11. Allergies to azithromycin and Rocephin. Nathaniel Hall M.D. DR: ANGELO JOB#: [id number] CC: [place]
[2018-04-15] VITALS: BP 116/71
[2018-04-15] MEDS: HYDROcodone/Acetamin 7.5/325 tab ORAL PRN (01:34)
[2018-04-15] MEDS: NS w/KCl 20mEq 1,000 ML IV SCH ×2 (01:39→12:34)
[2018-04-15] MEDS: Milk of Magnesia 30ml Ud ORAL PRN (01:39)
[2018-04-15 04:00] VITALS: BP 125/71
[2018-04-15] MEDS: Vancomycin 1 GM in D5W 275 ML IVPB SCH ×2 (04:14→12:00)
[2018-04-15 06:58] LABS: BASOPHILS % (AUTO) 0.2 % (0.0-2.0); EOSINOPHILS % (AUTO) 0.1 % (0.0-3.0); HEMOGLOBIN 11.1 G/DL (14.2-18.0); LYMPHOCYTES % (AUTO) 9.2 % (20.0-45.0); MEAN CORPUSCULAR VOLUME 91 FL (80-99); MONOCYTES % (AUTO) 6.2 % (1.0-10.0); NEUTROPHILS % (AUTO) 84.4 % (45.0-75.0); PLATELET COUNT 260 K/UL (150-450); RED BLOOD COUNT 3.53 M/UL (4.70-6.10); RED CELL DISTRIBUTION WIDTH 10.2 % (11.6-14.8); WHITE BLOOD COUNT 8.4 K/UL (4.8-10.8)
[2018-04-15 07:06] LABS: ANION GAP 3 mmol/L (5-15); BLOOD UREA NITROGEN 19 mg/dL (7-18); CALCIUM 8.5 MG/DL (8.5-10.1); CARBON DIOXIDE 29 MMOL/L (21-32); CHLORIDE 105 MMOL/L (98-107); CREATININE 0.9 MG/DL (0.55-1.30); POTASSIUM 4.3 MMOL/L (3.5-5.1); SODIUM 137 MMOL/L (136-145)
[2018-04-15] MEDS: Docusate 100mg cap ORAL SCH (09:00)
[2018-04-15 10:33] VITALS: BP 122/61
[2018-04-15 12:00] VITALS: BP 127/73
--- NOTE | 2018-04-15 13:44 | Pulmonology Progress Note ---
Assessment/Plan Problems: (1) Allergic reaction (2) History of lumbosacral spine surgery Assessment/Plan pt is afebrile, wbc wnl f/u cultures symptomatic treatment dvt prophylaxis. Subjective ROS Limited/Unobtainable: No Constitutional: Reports: no symptoms HEENT: Repors: no symptoms Allergies: Coded Allergies: AZITHROMYCIN (Verified Allergy, Unknown, 03/25/09) ERYTHROMYCIN BASE (Verified Allergy, Unknown, 04/13/18) Objective Last 24 Hour Vital Signs Date Time Temp Pulse Resp B/P (MAP) Pulse Ox O2 Delivery O2 Flow Rate FiO2 04/15/18 12:00 97.9 60 18 127/73 (91) 97 97.9 04/15/18 10:33 97.7 62 17 122/61 (81) 97 97.7 04/15/18 09:00 Room Air 04/15/18 04:00 98.0 66 18 125/71 (89) 96 98.0 04/15/18 00:00 97.9 70 18 116/71 (86) 96 97.9 04/14/18 21:00 Room Air 04/14/18 20:00 97.0 62 18 133/68 (89) 95 97.0 04/14/18 16:00 98.2 63 18 129/76 (93) 99 98.2 Intake and Output 04/14/18 04/15/18 19:00 07:00 Intake Total 800 ml 1000 ml Balance 800 ml 1000 ml Intake Oral 1000 ml IV Total 800 ml # Voids 1 4 General Appearance: WD/WN HEENT: atraumatic Respiratory/Chest: chest wall non-tender, lungs clear Cardiovascular: normal peripheral pulses, normal rate Abdomen: normal bowel sounds, no organomegaly Microbiology Date/Time Source Procedure Growth Status 04/13/18 21:27 Wound Gram Stain - Final Resulted 04/13/18 21:27 Wound Aerobic Culture Pending Resulted 04/13/18 21:27 Wound Anaerobic Culture Pending Resulted 04/13/18 21:25 Wound Gram Stain - Final Resulted 04/13/18 21:25 Wound Aerobic Culture Pending Resulted 04/13/18 21:25 Wound Anaerobic Culture Pending Resulted Laboratory Tests 04/15/18 05:35: White Blood Count 8.4, Red Blood Count 3.53L, Hemoglobin 11.1L, Hematocrit 32.0L , Mean Corpuscular Volume 91, Mean Corpuscular Hemoglobin 31.6H, Mean Corpuscular Hemoglobin Concent 34.9, Red Cell Distribution Width 10.2L, Platelet Count 260, Mean Platelet Volume 6.1L, Neutrophils (%) (Auto) 84.4H, Lymphocytes (%) (Auto) 9.2L, Monocytes (%) (Auto) 6.2, Eosinophils (%) (Auto) 0.1, Basophils (%) (Auto) 0.2, Sodium Level 137, Potassium Level 4.3, Chloride Level 105, Carbon Dioxide Level 29, Anion Gap 3L, Blood Urea Nitrogen 19H, Creatinine 0.9, Estimat Glomerular Filtration Rate > 60, Glucose Level 115H, Calcium Level 8.5 Current Medications Medications (Trade) Dose Ordered Sig/Pritesh Route PRN Reason Start Time Stop Time Status Last Admin Dose Admin Acetaminophen (Tylenol) 650 mg Q4H PRN ORAL headache or temp>101 04/13/18 20:45 05/13/18 20:44 Acetaminophen/ Hydrocodone Bitart ([place] 5/325) 1 tab Q3H PRN ORAL pain score 1-3 04/13/18 20:45 04/20/18 20:44 Acetaminophen/ Hydrocodone Bitart ([place] 7.5/325) 1 tab Q3H PRN ORAL pain score 4-6 04/13/18 20:45 04/20/18 20:44 Acetaminophen/ Hydrocodone Bitart ([place] 7.5/325) 2 tab Q3H PRN ORAL pain scale 7-10 04/13/18 20:45 04/20/18 20:44 04/15/18 01:34 Carisoprodol (Soma) 350 mg TIDPRN PRN ORAL SPASM 04/13/18 20:45 05/13/18 20:44 Ceftriaxone Sodium 2 gm/ Dextrose 100 ml @ 200 mls/hr DAILY IVPB 04/14/18 16:00 04/21/18 15:59 04/14/18 17:31 Cetylpyridinium Chloride (Cepacol) 1 lozg EVERY 2 HOURS PRN DAX To Patient Comfort 04/13/18 20:45 05/13/18 20:44 Docusate Sodium (Colace) 100 mg TWICE A DAY ORAL 04/14/18 09:00 05/14/18 08:59 04/14/18 17:31 Magnesium Hydroxide (Mom) 30 ml QIDPRN PRN ORAL Constipation 04/13/18 20:45 05/13/18 20:44 04/15/18 01:39 Metoclopramide HCl (Reglan) 10 mg Q6H PRN IVP Nausea & Vomiting 04/13/18 20:45 05/13/18 20:44 Morphine Sulfate (Morphine Sulfate) 4 mg Q2H PRN IV Moderate Pain (Pain Scale 4-6) 04/14/18 10:45 04/21/18 10:44 04/14/18 17:32 Morphine Sulfate (Morphine Sulfate) 6 mg Q3H PRN IV Severe Pain (Pain Scale 7-10) 04/14/18 11:45 04/20/18 20:44 04/14/18 13:52 Naloxone HCl (Narcan) 0.1 mg PRN PRN IVP RR<12/min, pt unarousable 04/13/18 20:45 05/13/18 20:44 Ondansetron HCl (Zofran) 4 mg Q6H PRN IVP Nausea & Vomiting 04/13/18 20:45 05/13/18 20:44 Phenol/Menthol (Chloraseptic) 1 spray Q3H PRN ORAL To Patient Comfort 04/13/18 20:45 05/13/18 20:44 Sodium Chloride 1,000 ml @ 100 mls/hr Q10H IV 04/13/18 20:34 05/13/18 20:33 04/15/18 01:39 Temazepam (Restoril) 15 mg HSPRN PRN ORAL Insomnia 04/13/18 20:45 04/20/18 20:44 Vancomycin HCl (Vanco rx to dose) 1 ea DAILY PRN MISC Per rx protocol 04/14/18 15:00 05/14/18 14:59 Vancomycin HCl 1 gm/Dextrose 275 ml @ 183.3 mls/ hr Q8H IVPB 04/14/18 20:00 04/19/18 19:59 04/15/18 04:14 Stephany Sadler MD Apr 15, 2018 13:44
[2018-04-15] MEDS ORDERED: CEPHALEXIN500 MG ORAL (14:06)
[2018-04-15] MEDS ORDERED: BACTRIM DS TAB1 EAC1 ORAL (14:06)
--- NOTE | 2018-04-15 14:21 | Infectious Diseases Prog Note ---
Assessment/Plan Assessment/Plan A) 1) possible lumbar back wound infection vs allergic reaction - s/p debridement - gram stain with no organisms, rare wbc only - culture pending 2) s/p recent lumbar spine decompression and laminectomy 3) allergies - azithromycin, erythromycin 4) htn, on anti-hypertensive tx P 1) vancomycin and ceftriaxone - patient refusing iv abx now per RN 2) patient anxious to go home - will give oral bactrim and keflex for 10 days and f/u on surgical cultures as outpatient 3) d/w with Dr. Leos, D/w Carmelina Blakely NP, d/w patient 4) for discharge today Subjective Constitutional: Denies: fever HEENT: Denies: congestion Respiratory: Denies: shortness of breath Cardiovascular: Denies: chest pain Gastrointestinal/Abdominal: Denies: nausea, vomiting Neurologic: Reports: no symptoms Allergies: Coded Allergies: AZITHROMYCIN (Verified Allergy, Unknown, 03/25/09) ERYTHROMYCIN BASE (Verified Allergy, Unknown, 04/13/18) Objective Vital Signs Last 24 Hour Vital Signs Date Time Temp Pulse Resp B/P (MAP) Pulse Ox O2 Delivery O2 Flow Rate FiO2 04/15/18 12:00 97.9 60 18 127/73 (91) 97 97.9 04/15/18 10:33 97.7 62 17 122/61 (81) 97 97.7 04/15/18 09:00 Room Air 04/15/18 04:00 98.0 66 18 125/71 (89) 96 98.0 04/15/18 00:00 97.9 70 18 116/71 (86) 96 97.9 04/14/18 21:00 Room Air 04/14/18 20:00 97.0 62 18 133/68 (89) 95 97.0 04/14/18 16:00 98.2 63 18 129/76 (93) 99 98.2 Height (Feet): 5 Height (Inches): 10.00 Weight (Pounds): 240 General Appearance: no acute distress HEENT: normocephalic, atraumatic, anicteric, mucous membranes moist Respiratory/Chest: lungs clear, normal breath sounds, no respiratory distress Cardiovascular: normal rate, regular rhythm, no gallop/murmur Abdomen: soft, non tender, no organomegaly, non distended Skin: other - lumbar incision with some edema/redness but less when discussed with RN, no pus, no drainage noted on exam Microbiology Date/Time Source Procedure Growth Status 04/13/18 21:27 Wound Gram Stain - Final Resulted 04/13/18 21:27 Wound Aerobic Culture Pending Resulted 04/13/18 21:27 Wound Anaerobic Culture Pending Resulted 04/13/18 21:25 Wound Gram Stain - Final Resulted 04/13/18 21:25 Wound Aerobic Culture Pending Resulted 04/13/18 21:25 Wound Anaerobic Culture Pending Resulted Laboratory Tests Test 04/15/18 05:35 White Blood Count 8.4 K/UL (4.8-10.8) Red Blood Count 3.53 M/UL (4.70-6.10) L Hemoglobin 11.1 G/DL (14.2-18.0) L Hematocrit 32.0 % (42.0-52.0) L Mean Corpuscular Volume 91 FL (80-99) Mean Corpuscular Hemoglobin 31.6 PG (27.0-31.0) H Mean Corpuscular Hemoglobin Concent 34.9 G/DL (32.0-36.0) Red Cell Distribution Width 10.2 % (11.6-14.8) L Platelet Count 260 K/UL (150-450) Mean Platelet Volume 6.1 FL (6.5-10.1) L Neutrophils (%) (Auto) 84.4 % (45.0-75.0) H Lymphocytes (%) (Auto) 9.2 % (20.0-45.0) L Monocytes (%) (Auto) 6.2 % (1.0-10.0) Eosinophils (%) (Auto) 0.1 % (0.0-3.0) Basophils (%) (Auto) 0.2 % (0.0-2.0) Sodium Level 137 MMOL/L (136-145) Potassium Level 4.3 MMOL/L (3.5-5.1) Chloride Level 105 MMOL/L (98-107) Carbon Dioxide Level 29 MMOL/L (21-32) Anion Gap 3 mmol/L (5-15) L Blood Urea Nitrogen 19 mg/dL (7-18) H Creatinine 0.9 MG/DL (0.55-1.30) Estimat Glomerular Filtration Rate > 60 mL/min (>60) Glucose Level 115 MG/DL (74-106) H Calcium Level 8.5 MG/DL (8.5-10.1) Current Medications Medications (Trade) Dose Ordered Sig/Pritesh Route PRN Reason Start Time Stop Time Status Last Admin Dose Admin Acetaminophen (Tylenol) 650 mg Q4H PRN ORAL headache or temp>101 04/13/18 20:45 05/13/18 20:44 Acetaminophen/ Hydrocodone Bitart ([place] 5/325) 1 tab Q3H PRN ORAL pain score 1-3 04/13/18 20:45 04/20/18 20:44 Acetaminophen/ Hydrocodone Bitart ([place] 7.5/325) 1 tab Q3H PRN ORAL pain score 4-6 04/13/18 20:45 04/20/18 20:44 Acetaminophen/ Hydrocodone Bitart ([place] 7.5/325) 2 tab Q3H PRN ORAL pain scale 7-10 04/13/18 20:45 04/20/18 20:44 04/15/18 01:34 Carisoprodol (Soma) 350 mg TIDPRN PRN ORAL SPASM 04/13/18 20:45 05/13/18 20:44 Ceftriaxone Sodium 2 gm/ Dextrose 100 ml @ 200 mls/hr DAILY IVPB 04/14/18 16:00 04/21/18 15:59 04/14/18 17:31 Cetylpyridinium Chloride (Cepacol) 1 lozg EVERY 2 HOURS PRN DAX To Patient Comfort 04/13/18 20:45 05/13/18 20:44 Docusate Sodium (Colace) 100 mg TWICE A DAY ORAL 04/14/18 09:00 05/14/18 08:59 04/14/18 17:31 Magnesium Hydroxide (Mom) 30 ml QIDPRN PRN ORAL Constipation 04/13/18 20:45 05/13/18 20:44 04/15/18 01:39 Metoclopramide HCl (Reglan) 10 mg Q6H PRN IVP Nausea & Vomiting 04/13/18 20:45 05/13/18 20:44 Morphine Sulfate (Morphine Sulfate) 4 mg Q2H PRN IV Moderate Pain (Pain Scale 4-6) 04/14/18 10:45 04/21/18 10:44 04/14/18 17:32 Morphine Sulfate (Morphine Sulfate) 6 mg Q3H PRN IV Severe Pain (Pain Scale 7-10) 04/14/18 11:45 04/20/18 20:44 04/14/18 13:52 Naloxone HCl (Narcan) 0.1 mg PRN PRN IVP RR<12/min, pt unarousable 04/13/18 20:45 05/13/18 20:44 Ondansetron HCl (Zofran) 4 mg Q6H PRN IVP Nausea & Vomiting 04/13/18 20:45 05/13/18 20:44 Phenol/Menthol (Chloraseptic) 1 spray Q3H PRN ORAL To Patient Comfort 04/13/18 20:45 05/13/18 20:44 Sodium Chloride 1,000 ml @ 100 mls/hr Q10H IV 04/13/18 20:34 05/13/18 20:33 04/15/18 01:39 Temazepam (Restoril) 15 mg HSPRN PRN ORAL Insomnia 04/13/18 20:45 04/20/18 20:44 Vancomycin HCl (Vanco rx to dose) 1 ea DAILY PRN MISC Per rx protocol 04/14/18 15:00 05/14/18 14:59 Vancomycin HCl 1 gm/Dextrose 275 ml @ 183.3 mls/ hr Q8H IVPB 04/14/18 20:00 04/19/18 19:59 04/15/18 04:14 Nathaniel Hall MD Apr 15, 2018 14:21
--- NOTE | 2018-04-16 10:25 | Discharge Summary ---
Discharge Summary Hospital Course Date of Admission Apr 13, 2018 at 23:45 Date of Discharge Apr 15, 2018 at 15:55 Admitting Diagnosis SURGICAL INFECTION HPI Kevon Gutierrez is a 47 year old male who was admitted on Apr 13, 2018 at 23:45 for Surgical Infection This is a 47 y/o male with a PMH of back injury s/p recent lumbar decompression who presented with 4 days of worsening headaches and wound drainage to back. Patient presented to [place] and was noted to have an elevated ESR and CRP, and was given abx. Patient was further transferred to [facility] [place] further I&D. Patient underwent an I&D yesterday with no periop or postop complications. Patient states headaches have improved. Denies fevers/chills, sob, cp, n/v, abdominal pain. Postop pain well controlled. Consultations ID Spine surgery Procedures I&D Hospital Course Patient was admitted and underwent an I&D with no periop or postop complications. Patient was thereafter started on broad spectrum IV antibiotics. Initial gram stain revealed no organisms to be seen. Patient was persistent to going home so patient was given PO abx for 10 days and final wound cultures will be followed up on. Patient was hemodynamically stable, afebrile, and pain was well controlled prior to discharge. Patient was ambulating well and tolerating diet prior to discharge. Discharge Medications New Medications: Cephalexin* (Keflex*) 500 Mg Capsule 500 MG ORAL EVERY 6 HOURS for 10 Days, #40 CAP Trimethoprim/Sulfamethoxazole 160/800* (Bactrim Ds Tablet*) 1 Each Tablet 1 TAB ORAL TWICE A DAY for 10 Days, #20 TAB Continued Medications: Lisinopril/Hydrochlorothiazide 20-12.5 Mg Tab (Lisinopril-Hctz 20-12.5 Mg Tab) 1 Each Tablet 2 TAB ORAL DAILY, TAB (This prescription has been renewed) Discharge Condition Upon Discharge: improving, stable Discharge Disposition Patient was discharged to Home (01) Discharge Diagnoses: (1) Encounter for generalized patient complaints (2) Allergic reaction (3) Wound infection (4) History of lumbosacral spine surgery Carmelina Blakely NP Apr 16, 2018 10:25
== END 2018-04-15 15:55 | disposition home or self-care (01) | DRG 607 ==
LOC: EMR 20:00 → EDBEDREQ 20:07 → SDS 21:13 → 3E 23:45
PROC: 3E10X8Z Irrigation of Skin and Mucous Membranes using Irrigating Substance (ICD-10-PCS; principal; 2018-04-13 19:00)
DX: L23.9 Allergic contact dermatitis, unspecified cause (principal); T81.4XXA Infection following a procedure, initial encounter; Z98.1 Arthrodesis status; R51 Headache; Y83.8 Other surgical procedures as the cause of abnormal reaction of the patient, or of later complication, without mention of misadventure at the time of the procedure; Y92.89 Other specified places as the place of occurrence of the external cause
CPT/HCPCS: 36415; 80048; 80053; 85007; 85025; 87070; 87075; 87081; 87205; 99285; J2250; J2405; J2710